=== PATIENT | male | born 1990 | race Caucasian/White ===

== ENCOUNTER 2020-10-08 17:03 | Emergency (ER) | payer BC, OTHER ==
[~2020-10-08] VITALS: Ht 180.3 cm; Wt 116.4 kg
--- NOTE | 2020-10-08 17:39 | REP ---
INDICATION: trauma. COMPARISON: None. TECHNIQUE: Four views of the 1st and 2nd digit FINDINGS: Are is no acute fracture or destructive osseous lesion. Artifact is seen around the nail region of the 1st digit. This could be secondary to foreign bodies which needs to be correlated clinically. IMPRESSION: As above <Electronically signed by Kailash Lopez > 10/08/20 [id number]
[2020-10-08] MEDS ORDERED: CEPH500C PO (20:59)
[2020-10-08 21:00] VITALS: BP 154/77
[2020-10-08] MEDS ORDERED: CEPHALEXIN 500 MG CAP PO ONE (21:00)
== END 2020-10-08 21:04 | disposition home or self-care (01) ==
LOC: M ED 17:03
DX: S97.111A Crushing injury of right great toe, initial encounter (principal); W20.8XXA Other cause of strike by thrown, projected or falling object, initial encounter; Y92.009 Unspecified place in unspecified non-institutional (private) residence as the place of occurrence of the external cause; Y93.9 Activity, unspecified; Y99.9 Unspecified external cause status

== ENCOUNTER → 2020-10-23 | Outpatient (CLI) | payer BC, OTHER ==
[~2020-10-23] MED LIST: CEPH500C PO
--- NOTE | 2020-10-23 12:41 | REP ---
INDICATION: CRUSHING INJURY OF TOE OF RT FOOT COMPARISON: None. TECHNIQUE: Right lower extremity arterial ultrasound with Doppler FINDINGS: All numeric values represent peak systolic velocity in cm/SEC. The ankle brachial index is 1.1. [employer]: 152.2 triphasic Profunda: 82.2 triphasic SFA proximal: 79.9 triphasic SFA Mid: 86.1 triphasic SFA distal: 82.5 triphasic Popliteal: 57.4 triphasic KAYLIE proximal: 45.5 triphasic Tibioperoneal trunk: 62.7 triphasic [employer] proximal: 64.3 triphasic [employer] PROC[employer]OR distal: 44.3 triphasic KAYLIE distal: 40.6 triphasic A minimal amount of plaque was identified. IMPRESSION: As above <Electronically signed by Kailash Lopez > 10/23/20 [id number]
== END ==
LOC: M RAD 11:57
PROVIDERS: ATTEND Physician Assistant
DX: S97.101A Crushing injury of unspecified right toe(s), initial encounter (principal); L97.512 Non-pressure chronic ulcer of other part of right foot with fat layer exposed; X58.XXXA Exposure to other specified factors, initial encounter; Y92.9 Unspecified place or not applicable; Y93.9 Activity, unspecified; Y99.9 Unspecified external cause status

== ENCOUNTER → 2021-01-03 | Outpatient (CLI) | payer BC, OTHER ==
--- NOTE | 2021-01-03 08:13 | REP ---
INDICATION: ELEVATED LFT'S COMPARISON: None. TECHNIQUE: Real time jean baptiste scale ultrasound examination using curved array transducer. FINDINGS: Liver appears hyperechoic with poor through transmission suggesting fatty infiltration and fatty sparing at the gallbladder fossa. Pancreas is incompletely evaluated due to interposed bowel gas. The gallbladder is normal and without gallstones, wall thickening, or pericholecystic fluid. No biliary ductal dilatation is appreciated and the common bile duct measures 4.3 mm diameter. Right kidney is normal in reniform shape without hydronephrosis and measures 13.2 x 6.4 x 5.2 cm. No ascites in the visualized right upper quadrant. IMPRESSION: Hepatosteatosis. <Electronically signed by Dino Robles > 01/03/21 0824
== END ==
LOC: M RAD 06:42
PROVIDERS: ATTEND Family Medicine
DX: K76.0 Fatty (change of) liver, not elsewhere classified (principal); R94.5 Abnormal results of liver function studies

== ENCOUNTER → 2021-02-26 | Outpatient (REF) | payer OTHER, BC | LOC: M LAB REF 16:27 | PROVIDERS: ATTEND Family Medicine | DX: B35.1 Tinea unguium (principal) ==